=== PATIENT | male | born 1980 | race Caucasian/White ===

== ENCOUNTER 2018-11-16 09:26 | Inpatient (IN) | payer OTHER ==
[~2018-11-16] VITALS: Ht 193 cm; Wt 89.8 kg
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
[2018-11-16] MEDS ORDERED: DEXTROSE 50% 50 ML SYR ONE (09:40)
[2018-11-16] MEDS ORDERED: DEXTROSE 50% 50 ML SYR IVP ONE (09:40)
[2018-11-16 09:48] LABS: PLATELET COUNT, AUTOMATED 168 K/uL (150-450)
[2018-11-16] MEDS ORDERED: NOVOLOG SUBQ (09:49)
[2018-11-16] MEDS ORDERED: LANI SUBQ (09:49)
[2018-11-16] MEDS ORDERED: IOPAMIDOL 76% 75 ML INFUS BTL 0 ML ONE (09:51)
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
[2018-11-16] MEDS ORDERED: LISI20TA29 PO (13:01)
[2018-11-16] MEDS ORDERED: TORS20TA30 PO (13:01)
[2018-11-16] MEDS ORDERED: SODI325T7 PO (13:01)
[2018-11-16] MEDS ORDERED: ATOR20TA22 PO (13:01)
[2018-11-16] MEDS ORDERED: MORPHINE 4 MG/ML SDV IVP ONE (13:05)
[2018-11-16] MEDS ORDERED: D5 1/2 NS(*) 1000 ML BAG 1,000 ML IV ONE (13:45)
[2018-11-16 15:09] VITALS: BP 185/115
[2018-11-16] MEDS ORDERED: LEVI SUBQ (15:33)
[2018-11-16] MEDS ORDERED: NICOTINE INH SYSTEM 10 MG/INH INH PRN (15:40)
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
[2018-11-16] MEDS: INSULIN HUM LISPRO 100 UN/ML 3 ML VIAL SUBQ PRN (17:17)
[2018-11-16] MEDS ORDERED: POTASSIUM CHL 10 MEQ TABCR PO ONE (17:55)
[2018-11-16] MEDS: MORPHINE 2 MG/ML SYR IVP PRN ×2 (17:59→21:58)
[2018-11-16 19:18] VITALS: BP 157/102
[2018-11-16] MEDS ORDERED: NS(*) 0.9% 1000 ML BAG 1,000 ML ONE (21:03)
[2018-11-16] MEDS ORDERED: NS(*) 0.9% 1000 ML BAG 1,000 ML IV PRN (21:55)
[2018-11-16 23:12] VITALS: BP 135/87
[2018-11-17] MEDS: INSULIN HUM LISPRO 100 UN/ML 3 ML VIAL SUBQ PRN ×5 (00:17→21:15)
[2018-11-17] MEDS: MORPHINE 2 MG/ML SYR IVP PRN ×2 (02:19→06:20)
[2018-11-17 03:16] VITALS: BP 141/92
[2018-11-17 06:02] LABS: PLATELET COUNT, AUTOMATED 138 K/uL (150-450)
[2018-11-17 07:20] VITALS: BP 148/92
[2018-11-17] MEDS ORDERED: POTASSIUM CHL 10 MEQ TABCR PO SCH (08:00)
[2018-11-17] MEDS: NS(*) 0.9% 1000 ML BAG 1,000 ML IV PRN ×2 (09:16→16:56)
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
--- NOTE | 2018-11-17 11:03 | NUR ---
Patient dropping to mid 80s O2 sats. Refusing to wear oxygen. Educated patient about importance of wearing oxygen while taking pain medication and maintaining saturations above 90%. Continues to refuse oxygen.
[2018-11-17 11:05] VITALS: Ht 193 cm; Wt 89.8 kg
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
[2018-11-17 12:10] VITALS: BP 129/91
--- NOTE | 2018-11-17 13:39 | RADIOLOGY IMAGING REPORT ---
FACILITY: [facility] PATIENT NAME: You Pratt : 1980 MR: [id number] V: [id number] EXAM DATE: ORDERING PHYSICIAN: CAMILO PETE TECHNOLOGIST: [place] [facility] [place] Pratt : 1980 Visit/Account:[id number] Date of Sevice: 11/17/2018 CHEST PA AND LAT HISTORY: pneumomediastinum. COMPARISON: 11/16/2018. CT chest 11/16/2018 FINDINGS: Cardiomediastinal contours: No evidence of pneumomediastinum. Lungs and pleura: No pneumothorax. New mild blunting of the left costophrenic angle. Bones/soft tissues: Normal Other findings: None significant IMPRESSION: 1. No evidence of pneumomediastinum. 2. There is new mild blunting of the left costophrenic angle which may be tiny effusion, atelectasis or contusion. Report Dictated By: Grayson Coffman MD at 11/17/2018 1:33 PM Report E-Signed By: Grayson Coffman MD at 11/17/2018 1:35 PM WSN:[id number]
[2018-11-17 16:42] VITALS: BP 152/99
[2018-11-17 19:19] VITALS: BP 148/91
[2018-11-17] MEDS ORDERED: INSULIN DETEMIR 100 U/ML 3 ML PEN SUBQ SCH (21:00)
[2018-11-17] MEDS ORDERED: SODIUM BICARBONATE 650 MG TAB PO SCH (21:00)
[2018-11-17 22:45] VITALS: BP 141/95
[2018-11-18] MEDS: NS(*) 0.9% 1000 ML BAG 1,000 ML IV PRN ×2 (07:15)
[2018-11-18 07:17] VITALS: BP 146/107
[2018-11-18] MEDS: INSULIN HUM LISPRO 100 UN/ML 3 ML VIAL SUBQ PRN (07:27)
[2018-11-18] MEDS ORDERED: INFLUENZA VIRUS VAC 0.5ML SYR IM ONLY ONE (09:00)
[2018-11-18 11:43] VITALS: BP 182/118
[2018-11-18 11:50] VITALS: BP 189/110
[2018-11-18] MEDS ORDERED: LEVI SUBQ (11:51)
[2018-11-18] MEDS ORDERED: LISINOPRIL 20 MG TAB PO ONE (11:55)
[2018-11-18] MEDS ORDERED: PER PO (12:02)
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
== END 2018-11-18 13:59 | disposition home or self-care (01) | DRG 638 ==
LOC: ER 09:48 → MED 14:02
PROVIDERS: ADMIT Internal Medicine; ATTEND Internal Medicine
DX: E10.649 Type 1 diabetes mellitus with hypoglycemia without coma (principal); S32.019A Unspecified fracture of first lumbar vertebra, initial encounter for closed fracture; S32.029A Unspecified fracture of second lumbar vertebra, initial encounter for closed fracture; S32.039A Unspecified fracture of third lumbar vertebra, initial encounter for closed fracture; E10.22 Type 1 diabetes mellitus with diabetic chronic kidney disease; I12.9 Hypertensive chronic kidney disease with stage 1 through stage 4 chronic kidney disease, or unspecified chronic kidney disease; N18.9 Chronic kidney disease, unspecified; N17.9 Acute kidney failure, unspecified; J98.2 Interstitial emphysema; N20.0 Calculus of kidney; R60.0 Localized edema; E78.5 Hyperlipidemia, unspecified; F17.210 Nicotine dependence, cigarettes, uncomplicated; V48.5XXA Car driver injured in noncollision transport accident in traffic accident, initial encounter; Y93.89 Activity, other specified; Y92.410 Unspecified street and highway as the place of occurrence of the external cause; Y99.0 Civilian activity done for income or pay; Z79.4 Long term (current) use of insulin
CPT/HCPCS: 36415; 36416; 70450; 71045; 71046; 71250; 72125; 74176; 80305; 80320; 81001; 82040; 82247; 82310; 82374; 82435; 82565; 82947; 82948; 84075; 84132; 84155; 84295; 84450; 84460; 84520; 85025; 96365; 96375; 99285; J1815; J2270; J7030; Q9967